=== PATIENT | female | born 1970 | race Caucasian/White ===

== ENCOUNTER → 2022-03-23 | Outpatient (CLI) | payer BC ==
--- NOTE | 2022-03-27 05:48 | PE ---
EXAMINATION TYPE: PET CT fusion skull to thigh DATE OF EXAM: 03/23/2022 COMPARISON: NONE at this institution. HISTORY: Solitary pulmonary nodule, abnormal lung findings. History of lung biopsy per patient. TECHNIQUE: Following the intravenous administration of 9.51 mCi of F-18 FDG, whole body images are p erformed from the skull base to the midthigh. Images are reviewed on the computer in the coronal, ax ial, and sagittal planes. Reconstructed rotating images are created on independent workstation and r eviewed on the computer. A localization and attenuation correction CT is performed in conjunction w ith the PET scan. Blood glucose level equals 79. SCAN: Initial Scan FINDINGS: SKULL BASE AND NECK: No areas of abnormal hypermetabolic uptake. CHEST, MEDIASTINUM, AND HILAR REGION: Underlying emphysematous change is present. No areas of abnorma l hypermetabolic uptake. Roughly 7 mm peripheral groundglass nodule right lower lung axial image 91. There are 2 adjacent scarlike opacities near 8 mm in the right upper lung axial image 68 and 70 which are ametabolic favoring postinflammatory scarring. ABDOMEN AND PELVIS: Normal excretion. No adrenal masses. No areas of abnormal hypermetabolic uptake. OSSEOUS STRUCTURES: No areas of abnormal hypermetabolic uptake. OTHER CT: Nasal septum deviated to left of midline. Small inferior pericardial effusion. Patient has little intra-abdominal fat. Moderate calcified plaque of the infrarenal abdominal aorta extends into the iliac branch vessels. IMPRESSION: No areas of abnormal hypermetabolic uptake to suggest malignancy.
== END | disposition home or self-care (01) ==
LOC: RADPETMAIN 12:08
PROVIDERS: ATTEND Internal Medicine Critical Care Medicine
DX: R91.8 Other nonspecific abnormal finding of lung field (principal); Z85.118 Personal history of other malignant neoplasm of bronchus and lung
CPT/HCPCS: 78815; A9552

== ENCOUNTER → 2022-09-05 | Outpatient (CLI) | payer BC ==
[2022-09-05 11:14] LABS: ABG HCO3 24 mmol/L (21-25); ABG Oxygen Saturation 97.5 % (94-97); ABG PCO2 30 mmHg (35-45); ABG PH 7.51 (7.35-7.45); ABG PO2 104 mmHg (83-108); ABG TCO2 25 mmol/L (19-24); Allen Test Performed? Yes
== END | disposition home or self-care (01) ==
LOC: LABWHC1 10:35
PROVIDERS: ATTEND Internal Medicine Critical Care Medicine
DX: J44.9 Chronic obstructive pulmonary disease, unspecified (principal)
CPT/HCPCS: 36600; 82805

== ENCOUNTER → 2022-10-23 | Outpatient (CLI) | payer BC ==
--- NOTE | 2022-10-23 10:36 | CT ---
EXAMINATION TYPE: CT chest wo con CT DLP: 688 mGycm, Automated exposure control for dose reduction was used. DATE OF EXAM: 10/23/2022 10:08 AM COMPARISON: PET/CT 03/23/2022. CLINICAL INDICATION:Female, 51 years old with history of [id number]; PHH, copd TECHNIQUE: Multiple axial images were obtained through the chest without IV contrast. Lack of IV or o ral contrast limits evaluation of solid and hollow organ viscera. FINDINGS: LUNGS/ PLEURA: Moderate centrilobular emphysematous changes. Interval development of right middle lob e reticular opacities. Development of lingular subpleural 5 mm nodule (series 4, image 99). Similar s carlike densities within the bilateral upper lobes. Biapical pleural parenchymal scarring. No pneumot horax or pleural effusions. AIRWAY: Patent and unremarkable.. HEART: Size within normal limits. Trace pericardial effusion. MEDIASTINUM: No gross evidence of adenopathy. VASCULATURE: No aortic aneurysm. MUSCULOSKELETAL: No acute osseous abnormalities SOFT TISSUES/LYMPH NODES: Unremarkable. LOWER NECK: No significant findings. UPPER ABDOMEN: No significant findings. IMPRESSION: 1. Interval development of right middle lobe reticular opacities concerning for infectious/inflammato ry process. 2. Development of a 5 mm pulmonary nodule in the lingula. Follow-up CT chest in one year is recommend ed. 3. Moderate COPD changes.
== END | disposition home or self-care (01) ==
LOC: RADCTMAIN 09:39
PROVIDERS: ATTEND Internal Medicine Critical Care Medicine
DX: J44.9 Chronic obstructive pulmonary disease, unspecified (principal); R91.8 Other nonspecific abnormal finding of lung field
CPT/HCPCS: 71250